=== PATIENT | male | born 1935 | race Caucasian/White ===

== ENCOUNTER 2016-11-07 21:12 | Inpatient (IN) | payer OTHER ==
--- NOTE | 2016-11-07 21:57 | EDPHY ---
H & P Time Seen by Provider: 11/07/16 21:23 HPI/ROS: CHIEF COMPLAINT: Syncope HISTORY OF PRESENT ILLNESS: Patient is a 80-year-old male who presents to the emergency department after having a syncopal episode. Patient has a history of syncope in the past for which a pacemaker was placed. Patient's states that his previous interrogation of the pacer did not reveal any dysrhythmia with syncopal episodes. Patient also reports abdominal aortic aneurysm of 4.4 cm. Patient [place] to visit his son. They had a beer. He took a hit of marijuana. He subsequently felt lightheaded. He went to his hands and knees. He then fainted. He denies any trauma in the fall. He has no headache or neck pain. He denies shortness of breath or chest pain. Patient denies abdominal pain, nausea or vomiting. He states "I feel 90%." REVIEW OF SYSTEMS: My complete review of systems is negative except as mentioned in the HPI. Past Medical/Surgical History: Includes abdominal aortic aneurysm, syncope, coronary artery disease Past surgical history: Includes bypass, pacemaker placement, orthopedic surgery Social history: The patient lives in [facility]. He does not smoke. He uses marijuana and year Smoking Status: Former smoker Physical Exam: Vitals noted GENERAL: Well-appearing, in no acute distress, alert. HEENT: Eyes normal to inspection, normal pharynx, no signs of dehydration. NECK: No thyromegaly, no lymphadenopathy, supple. RESPIRATORY: Clear to auscultation bilaterally, no rales, rhonchi or wheezing. CVS: Regular rate and rhythm, no rubs, murmurs, or gallops. Pacer in place. ABDOMEN: Soft, nontender, nondistended, no organomegaly. Midline ventral incisional hernia. Reducible. BACK: Normal to inspection, no CVA tenderness. SKIN: Normal color, no rash, warm, dry. No pallor. EXTREMITIES: No pedal edema, no calf tenderness, no Homans sign or cords, no joint swelling. NEURO/PSYCH: Higher functions: Alert and Oriented x3. Normal speech and cognition. Normal mood and affect. Cranial nerves: Normal as tested. Cerebellar: Normal as tested. Good finger to nose, good [id number], normal gait. Peripheral exam: Normal motor exam. Normal sensation. Normal reflexes. Constitutional: Initial Vital Signs Temperature (C) 36.3 C 11/07/16 21:21 Heart Rate 63 11/07/16 21:21 Respiratory Rate 16 11/07/16 21:21 Blood Pressure 142/79 H 11/07/16 21:21 O2 Sat (%) 95 11/07/16 21:21 O2 Delivery Mode Room Air Allergies/Adverse Reactions: No Known Allergies Allergy (Unverified 11/07/16 22:09) Home Medications: Medication Instructions Recorded ASPIRIN 11/07/16 Atenolol 11/07/16 Atorvastatin Calcium 11/07/16 Flomax 11/07/16 Lisinopril 11/07/16 Pepcid 11/07/16 Medical Decision Making - Diagnostics Imaging Results: Imaging Impressions Chest X-Ray 11/07/16 21:59 Impression: 1. Pacemaker without pneumothorax. 2. Previous coronary artery bypass. 3. Nonspecific 4 mm pulmonary nodule in the right midlung field. Recommend obtaining previous studies for comparison or follow-up CT chest. 4. Chronic bronchitis. 5. No definite pneumonia. Findings and recommendations discussed with Emergency Department physician, TRINO EPPERSON at 23:05 hour, 11/07/2016. Final report concurs with initial preliminary interpretation. ED Course/Re-evaluation: In the emergency department I discussed possible etiologies with the patient and his family. I answered all her questions. I reviewed the EMS EKG. Laboratory studies, EKG, chest x-ray, ultrasound were ordered. Patient was placed on a media monitor. Ventricular paced at 61 I rechecked the patient while here. He was stable during his stay. Chest x-ray: Patient has calcified nodules. Tortuous aorta. No focal infiltrate. I discussed the case with the hospitalist service. Dr. Sun will admit. Differential Diagnosis: My differential includes but is not limited to syncope, ACS, acute MA, dysrhythmia, dissection, aneurysm, electrolyte abnormality, sugar abnormality, vasovagal episode, reaction to marijuana, alcohol intoxication - Data Points Laboratory Results: Laboratory Results 11/07/16 21:27 11/07/16 21:27 11/07/16 11/07/16 11/07/16 21:27 21:27 21:27 WBC 8.80 10^3/uL 10^3/uL (3.80-9.50) RBC 4.63 10^6/uL 10^6/uL (4.40-6.38) Hgb 14.6 g/dL g/dL (13.7-17.5) Hct 44.6 % % (40.0-51.0) MCV 96.3 fL fL (81.5-99.8) MCH 31.5 pg pg (27.9-34.1) MCHC 32.7 g/dL g/dL (32.4-36.7) RDW 13.7 % % (11.5-15.2) Plt Count 181 10^3/uL 10^3/uL (150-400) MPV 10.4 fL fL (8.7-11.7) Neut % (Auto) 52.7 % % (39.3-74.2) Lymph % (Auto) 37.0 % % (15.0-45.0) Davis % (Auto) 6.1 % % (4.5-13.0) Eos % (Auto) 3.4 % % (0.6-7.6) Baso % (Auto) 0.7 % % (0.3-1.7) Nucleat RBC Rel Count 0.0 % % (0.0-0.2) Absolute Neuts (auto) 4.63 10^3/uL 10^3/uL (1.70-6.50) Absolute Lymphs (auto) 3.26 10^3/uL H 10^3/uL (1.00-3.00) Absolute Monos (auto) 0.54 10^3/uL 10^3/uL (0.30-0.80) Absolute Eos (auto) 0.30 10^3/uL 10^3/uL (0.03-0.40) Absolute Basos (auto) 0.06 10^3/uL 10^3/uL (0.02-0.10) Absolute Nucleated RBC 0.00 10^3/uL 10^3/uL (0-0.01) Immature Gran % 0.1 % % (0.0-1.1) Immature Gran # 0.01 10^3/uL 10^3/uL (0.00-0.10) PT 13.9 SEC SEC (12.0-15.0) INR 1.08 (0.83-1.16) APTT 23.6 SEC SEC (23.0-38.0) Sodium 137 mEq/L mEq/L (134-144) Potassium 4.5 mEq/L mEq/L (3.5-5.2) Chloride 105 mEq/L mEq/L (97-110) Carbon Dioxide 19 mEq/l L mEq/l (22-31) Anion Gap 13 mEq/L mEq/L (8-16) BUN 20 mg/dL mg/dL (7-23) Creatinine 1.3 mg/dL mg/dL (0.7-1.3) Estimated GFR 53 Glucose 127 mg/dL H mg/dL (70-100) Calcium 9.2 mg/dL mg/dL (8.5-10.4) Troponin I < 0.012 ng/mL ng/mL (0-0.034) Departure - Departure Disposition: [facility] Inpatient Acute Clinical Impression: Syncope and collapse Condition: Good
[2016-11-07] MEDS ORDERED: NS 500 ML IV ONE (21:59)
[2016-11-07 22:10] LABS: % IMMATURE GRANULYOCYTES 0.1 % (0.0-1.1); ABSOLUTE IMMATURE GRANULOCYTES 0.01 10^3/uL (0.00-0.10); ADD DIFF? NO; ADD MORPH? NO; ADD SCAN? NO; ATYPICAL LYMPHOCYTE FLAG 10 (0-99); FRAGMENT RBC FLAG 0 (0-99); HEMATOCRIT 44.6 % (40.0-51.0); HEMOGLOBIN 14.6 g/dL (13.7-17.5); LEFT SHIFT FLG 0 (0-99); LIPEMIA HEMOLYSIS FLAG 80 (0-99); MEAN CELL HEMOGLOBIN 31.5 pg (27.9-34.1); MEAN CELL HEMOGLOBIN CONCENTR. 32.7 g/dL (32.4-36.7); MEAN CELL VOLUME 96.3 fL (81.5-99.8); MEAN PLATELET VOLUME 10.4 fL (8.7-11.7); PLATELET CLUMPS FLAG 0 (0-99); PLATELET COUNT 181 10^3/uL (150-400); RED BLOOD CELL COUNT 4.63 10^6/uL (4.40-6.38); RED CELL DISTRIBUTION WIDTH 13.7 % (11.5-15.2)
[2016-11-07 22:11] LABS: APTT 23.6 SEC (23.0-38.0); INR 1.08 (0.83-1.16); PROTIME(PATIENT) 13.9 SEC (12.0-15.0)
--- NOTE | 2016-11-07 22:23 | CPEKG ---
Heart Rate: 61 RR Interval: 984 P-R Interval: 228 QRSD Interval: 140 QT Interval: 448 QTC Interval: 452 P [place]: 0 QRS [place]: 111 T Wave [place]: 254 EKG Severity - ABNORMAL ECG - EKG Impression: VENTRICULAR-PACED RHYTHM Electronically Signed By: Tomeka Lagunas 07-Nov-2016 22:57:50
[2016-11-07 22:51] LABS: ANION GAP 13 mEq/L (8-16); CALCIUM 9.2 mg/dL (8.5-10.4); CARBON DIOXIDE 19 mEq/l (22-31); CHLORIDE 105 mEq/L (97-110); CREATININE 1.3 mg/dL (0.7-1.3); GLOMERULAR FILTRATION RATE 53; GLUCOSE 127 mg/dL (70-100); POTASSIUM 4.5 mEq/L (3.5-5.2); SODIUM 137 mEq/L (134-144)
[2016-11-07 23:04] LABS: TROPONIN I < 0.012 ng/mL (0-0.034)
[2016-11-08] MEDS ORDERED: ONDANSETRON DISINTEGRATING 4 MG TAB PO PRN (00:19)
[2016-11-08] MEDS ORDERED: ACETAMINOPHEN 325 MG TAB PO PRN (00:19)
[2016-11-08] MEDS ORDERED: ALBUTEROL 3 ML DEYVIAL IH PRN (00:26)
--- NOTE | 2016-11-08 00:42 | PDGENHP ---
History and Physical - Chief Complaint syncope - History of Present Illness 80 yo male with h/o CAD, s/p CABG, PVD, AAA, and prior syncope with pacemaker placed in 1993 presents to ED after a syncopal event. He flew in from [place] today and noted feeling short of breath as soon as he landed. He says he used home oxygen when he lived in [place] previously, but isn't sure why, thinks maybe due to DUGLAS. He has no respiratory symptoms in [place], other than waking in the morning with phlegm. He is a prior smoker with 10-20 pack year history, but quit 35 yrs ago. He started using marijuana about a year ago to help him sleep. Upon arriving, he had a beer and then took a hit of marijuana. Shortly after smoking the MJ, he felt lightheaded and lowered himself to the ground. He then lost consciousness. He denies hitting his head. He denied feeling CP, SOB or palpitations prior to his syncope. He states that his pacemaker was placed in the 's after multiple episodes of syncope. An event monitor revealed what sounds like long sinus pauses and a pacemaker was placed. He has had a few syncopal episodes since then, though he notes those occurred usually after using marijuana. EMS was called and he was found to be hypotensive on scene. BP was normal upon arrival to the ED. He is completely asymptomatic at this time. He is admitted for observation. History Information - Allergies/Home Medication List Allergies/Adverse Reactions: No Known Allergies Allergy (Unverified 11/07/16 22:09) Home Medications: ASPIRIN 11/07/16 [Last Taken Unknown] Atenolol 11/07/16 [Last Taken Unknown] Atorvastatin Calcium 11/07/16 [Last Taken Unknown] Flomax 11/07/16 [Last Taken Unknown] Lisinopril 11/07/16 [Last Taken Unknown] Pepcid 11/07/16 [Last Taken Unknown] I have personally reviewed and updated: family history, medical history, social history, surgical history - Past Medical History coronary artery disease, hypertension, hyperlipidemia Additional medical history: PVD, osteoarthritis, h/o syncope, s/p pacemaker for sinus pauses - Surgical History Reports: coronary bypass surgery Additional surgical history: pacemaker placed 1993 - Family History Additional family history: mom of hodgkin's lymphoma, dad of PE, multiple siblings with CAD / DE - Social History Smoking Status: Former smoker Alcohol Use: Occasionally Drug Use: Marijuana Additional social history: Lives in [place], visiting family in [place]. Review of Systems ROS: 10pt was reviewed & negative except for what was stated in HPI & below Physical Exam Temp Pulse Resp BP Pulse Ox 36.8 C 74 22 H 150/83 H 92 11/07/16 23:57 11/07/16 23:57 11/07/16 23:57 11/07/16 23:57 11/07/16 23:57 Constitutional: no apparent distress Eyes: PERRL Ears, Nose, Mouth, Throat: moist mucous membranes Cardiovascular: regular rate and rhythym, no murmur, rub, or gallop Respiratory: no respiratory distress, clear to auscultation Gastrointestinal: normoactive bowel sounds, soft, non-tender abdomen Skin: warm Musculoskeletal: full muscle strength Neurologic: AAOx3 Psychiatric: interacting appropriately Lab Data & Imaging Review 11/07/16 21:27 11/07/16 21:27 WBC 8.80 10^3/uL (3.80-9.50) 11/07/16 21:27 RBC 4.63 10^6/uL (4.40-6.38) 11/07/16 21:27 Hgb 14.6 g/dL (13.7-17.5) 11/07/16 21:27 Hct 44.6 % (40.0-51.0) 11/07/16 21:27 MCV 96.3 fL (81.5-99.8) 11/07/16 21:27 MCH 31.5 pg (27.9-34.1) 11/07/16 21:27 MCHC 32.7 g/dL (32.4-36.7) 11/07/16 21:27 RDW 13.7 % (11.5-15.2) 11/07/16 21:27 Plt Count 181 10^3/uL (150-400) 11/07/16 21:27 MPV 10.4 fL (8.7-11.7) 11/07/16 21:27 Neut % (Auto) 52.7 % (39.3-74.2) 11/07/16 21:27 Lymph % (Auto) 37.0 % (15.0-45.0) 11/07/16: [place] % (Auto) 6.1 % (4.5-13.0) 11/07/16 21: Eos % (Auto) 3.4 % (0.6-7.6) 11/07/16 21: Baso % (Auto) 0.7 % (0.3-1.7) 11/07/16 21: Nucleat RBC Rel Count 0.0 % (0.0-0.2) 11/07/16 21: Absolute Neuts (auto) 4.63 10^3/uL (1.70-6.50) 11/07/16 21: Absolute Lymphs (auto) 3.26 10^3/uL (1.00-3.00) H 11/07/16: Absolute Monos (auto) 0.54 10^3/uL (0.30-0.80) 11/07/16 21: Absolute Eos (auto) 0.30 10^3/uL (0.03-0.40) 11/07/16 21: Absolute Basos (auto) 0.06 10^3/uL (0.02-0.10) 11/07/16 21: Absolute Nucleated RBC 0.00 10^3/uL (0-0.01) 11/07/16 21: Immature Gran % 0.1 % (0.0-1.1) 11/07/16 21: Immature Gran # 0.01 10^3/uL (0.00-0.10) 11/07/16 21: PT 13.9 SEC (12.0-15.0) 11/07/16 21: INR 1.08 (0.83-1.16) 11/07/16 21: APTT 23.6 SEC (23.0-38.0) 11/07/16 21: Sodium 137 mEq/L (134-144) 11/07/16 21: Potassium 4.5 mEq/L (3.5-5.2) 11/07/16 21: Chloride 105 mEq/L (97-110) 11/07/16 21: Carbon Dioxide 19 mEq/l (22-31) L 11/07/16 21: Anion Gap 13 mEq/L (8-16) 11/07/16 21:27 BUN 20 mg/dL (7-23) 11/07/16 21:27 Creatinine 1.3 mg/dL (0.7-1.3) 11/07/16 21: Estimated GFR 53 11/07/16 21:27 Glucose 127 mg/dL (70-100) H 11/07/16 21:27 Calcium 9.2 mg/dL (8.5-10.4) 11/07/16 21: Troponin I < 0.012 ng/mL (0-0.034) 11/07/16 21:27 Visualized and Interpreted Chest x-ray results: Yes Chest X-Ray results: no infiltrate Visualized and Interpreted EKG results: Yes EKG Interpretation: Positive for: normal sinsus rhythm Assessment & Plan Assessment: Syncope and collapse (Acute) - suspect neurally mediated after marijuana use, possibly orthostatic though orthostatics negative here. Also consider cardiogenic given his h/o sinus pauses and presence of pacemaker vs PE given recent travel and mild hypoxemia. -EACU, telemetry -trend troponin -interrogate pacemaker in am -check d dimer -I advised him against marijuana use Hypoxemia - mild, 92% on room air. CXR suggests chronic bronchitis. He has no pleuritic symptoms, no tachycardia. -as above, check d dimer, proceed with CTPA if elevated -prn nebs -recommended outpt PFT's Pulmonary nodule - 4 mm, incidental finding on CXR. Pt is informed of this and that he'll need outpt f/u chest CT when he returns to [place] (unless d dimer elevated here, in which case he'll have CTA prior to dc). AAA - U/S performed in ED, this is stable at ~4.4 cm. Outpt f/u for ongoing surveillance. CAD with h/o CABG - stable, no CP. Given syncope, will cycle troponin. Cont outpt meds. Full code Dispo - obs
[2016-11-08] MEDS ORDERED: IOPAMIDOL (ISOVUE 370) 100 ML BTL IV ONE (02:00)
[2016-11-08] MEDS ORDERED: FAMOTIDINE 20 MG TAB PO PRN (10:14)
[2016-11-08] MEDS ORDERED: METOPROLOL TARTRATE 25 MG TAB PO SCH (10:15)
[2016-11-08] MEDS: ACYCLOVIR 400 MG TAB PO SCH ×2 (10:27→20:19)
[2016-11-08] MEDS: ATENOLOL 50 MG TAB PO SCH ×2 (10:28→20:19)
[2016-11-08] MEDS: LISINOPRIL 20 MG TAB PO SCH ×2 (10:28→20:19)
[2016-11-08] MEDS: ASPIRIN 81 MG CHEWABLE TAB PO SCH (10:28)
[2016-11-08] MEDS: TAMSULOSIN HCL 0.4 MG CAP PO SCH (10:28)
[2016-11-08] MEDS ORDERED: hydrALAZINE 20 MG/ML VIAL IVP PRN (12:47)
--- NOTE | 2016-11-08 15:30 | HOSPPROG ---
Hospitalist Progress Note Assessment/Plan: 80 yo with syncopal episode. Patient new to me today -syncopy 2/2 use of ETOH with marijuana. This has previously caused syncopy. No evidence of rhythm disturbance; pacer is being interrogated currently -HTN: significant elevation. Will trreat with hydralazine and home meds and observe -CAD: no chest pain, troponin negative, ECG without ischemic changes -DUGLAS: uses CPAP while in [place], no in [place]. Will need nocturnal O2 Patient will need to be inpatient status due to hypertension, risk of coronary disease, and hypoxemia, and need monitor for 24 hours for dysrhtymia Subjective: no complaints, no chest pain Objective: Vital Signs Temp Pulse Resp BP Pulse Ox 36.6 C 60 18 126/68 H 93 11/08/16 12:00 11/08/16 12:00 11/08/16 12:00 11/08/16 14:40 11/08/16 12:00 PT 13.9 SEC (12.0-15.0) 11/07/16 21:27 INR 1.08 (0.83-1.16) 11/07/16 21:27 - Time Spent With Patient Time Spent with Patient: greater than 35 minutes Time Spent with Patient: Greater than 35 minutes spent on this patients care, greater than 50% of time spent counseling, educating, and coordinating care regarding the above mentioned plan. - Pending Discharge Pending Discharge Within 24 Hours: Yes Pending Discharge Date: 11/09/16 Pending Discharge Time: 11:00 - Physical Exam Constitutional: no apparent distress Eyes: PERRL, anicteric sclera Ears, Nose, Mouth, Throat: moist mucous membranes, hearing normal Cardiovascular: regular rate and rhythym, no murmur, rub, or gallop, systolic murmur, other (monitor is NSR with unifocal ectopy; no runs) Respiratory: no respiratory distress, no rales or rhonchi, clear to auscultation Gastrointestinal: normoactive bowel sounds, soft, non-tender abdomen Skin: warm Musculoskeletal: full muscle strength Neurologic: AAOx3, CN II-XII Intact ICD10 Worksheet Patient Problems: Problems Problem Status Onset Syncope and collapse Acute
--- NOTE | 2016-11-08 17:33 | ECHO ---
[id number] + + [address] : : [place] [address] : : [phone] + + Adult Echocardiographic Report + ---+ :Name: Laurel PORRAS Date: 11/08/2016 01:26 PM : : Hospital Admission Number: [id number] Location: 214: :: 1935 Gender: Male Height: 65 in : :Age: 80 yrs Race: WH Weight: 160 lb : :Reason For Study: Syncope : : BSA: 1.8 meters2 : :History: SOB/CABG/CAD/prior tobacco/DUGLAS : + ---+ MMode/2D Measurements \T\ Calculations IVSd: 1.4 cm LVIDd: 4.6 cm FS: 29.3 % Ao root diam: LVPWd: 1.0 cm LVIDs: 3.3 cm EDV(Teich): 3.7 cm 97.3 ml LA dimension: ESV(Teich): 4.7 cm 42.6 ml EF(Teich): 56.2 % LVLd ap4: 7.2 cm SV(MOD-sp4): EDV(MOD-sp4): 38.0 ml 60.0 ml LVLs ap4: 6.2 cm ESV(MOD-sp4): 22.0 ml EF(MOD-sp4): 63.3 % Normal Measurement Values: + + :LVIDd (3.5-5.7cm) IVSd (0.6-1.1cm) LVPWd (0.6-1.1cm) Aortic Root (2.0-3.7cm)Left Atrium (1.5-4.0cm): :LV Vol(d) (76-115ml) LV Vol(s) (29-48ml) Ejec Fraction (50-65%)PV Soham (0.6- 1.2m/s) TV Soham (0.4-1.0m/s) : :MV E Soham (0.8-1.0m/s)MV A Soham (0.3-1.0m/s)LVOT Soham (0.7-1.2m/s) Asc Ao Soham ( 0.9-1.8m/s) : + + Doppler Measurements \T\ Calculations MV E max soham: 95.3 cm/sec Ao V2 max: 120.8 cm/sec TR max soham: 319.0 cm/sec MV A max soham: 20.2 cm/sec Ao max P.8 mmHg TR max P.7 mmHg MV E/A: 4.7 RAP systole: 10.0 mmHg RVSP(TR): 50.7 mmHg Left Ventricle The left ventricle is normal in size. There is normal left ventricular wall thickness. Left ventricular systolic function is normal. Ejection Fraction = 65-70%. The left ventricular ejection fraction is calculated at 56.2 %. Septal motion is consistent with conduction abnormality. Right Ventricle The right ventricle is normal in size and function. There is a pacemaker lead in the right ventricle. Atria The left atrium is mildly dilated. The right atrium is mildly dilated. Mitral Valve The mitral valve is normal in structure and function. The mitral valve leaflets appear thickened, but open well. There is mild mitral regurgitation. Tricuspid Valve Normal tricuspid valve. There is moderate tricuspid regurgitation. Right ventricular systolic pressure is 45-50mmHg. There is Doppler evidence for mild pulmonary hypertension. Aortic Valve The aortic valve is trileaflet. The aortic valve opens well. There is no aortic stenosis. Trace aortic regurgitation. Pulmonic Valve The pulmonic valve is not well visualized. Trace pulmonic valvular regurgitation. Great Vessels The aortic root is normal size. Pericardium/Pleural There is no pericardial effusion. Conclusion A complete two-dimensional transthoracic echocardiogram was performed (2D, M-mode, Doppler and color flow Doppler). (1) Left ventricular systolic ejection fraction was normal (65-70%) - septal wall motion consisent with conduction (2) No left ventricular hypertrophy (3) Diastolic dysfunction was present (4) Normal right ventricular systolic ejection fraction (5) Mild biatrial dilation (6) Mild mitral regurgitation (7) Trileaflet aortic valve without sclerosis or appreciable insufficiency (8) Moderate tricuspid regurgitation - RVSP was estimated to be 45-50 mm Hg (9) Physiologic pulmonic insufficiency (10) Pacer lead to the right ventricular chamber (11) No comparison echocardiogram Final Reading Physician: Saman Ayala signed on 11/08/2016 05:31 PM Ordering Physician: Chavo Dawson Performed By: Alberta Colbert, CS
[2016-11-08] MEDS ORDERED: ATORVASTATIN CALCIUM 40 MG TAB PO SCH (21:00)
[2016-11-08] MEDS ORDERED: traZODone 50 MG TAB PO PRN (21:21)
[2016-11-09 07:09] VITALS: BP 153/88
[2016-11-09 08:07] VITALS: PULSE 60; RESP 17; TEMP 97.7; O2SAT 94
[2016-11-09] MEDS: ASPIRIN 81 MG CHEWABLE TAB PO SCH (08:46)
[2016-11-09] MEDS: ATENOLOL 50 MG TAB PO SCH (08:46)
[2016-11-09] MEDS: LISINOPRIL 20 MG TAB PO SCH (08:46)
[2016-11-09] MEDS: TAMSULOSIN HCL 0.4 MG CAP PO SCH (08:46)
[2016-11-09] MEDS: ACYCLOVIR 400 MG TAB PO SCH (08:46)
--- NOTE | 2016-11-09 10:42 | GDS ---
[f rep st] DISCHARGE SUMMARY ADMISSION DIAGNOSES: New and acute diagnoses on this admission: 1. Acute syncope, probably vasovagal. 2. Hypertension. 3. Elevated D-dimer. 4. Obstructive sleep apnea syndrome. 5. Pulmonary nodule, 4 millimeters, incidental finding on chest x-ray, requested outpatient followup on CT scan in 3 to 6 months. CONSULTATIONS: None. PROCEDURES: Echocardiogram, showing an EF of 65% to 70%, diastolic dysfunction , mild mitral regurgitation, trileaflet aortic valve without sclerosis or any appreciable insufficiency, and the RVSP was elevated at 45 to 50 mmHg. HOSPITAL COURSE: A 80-year-old male admitted for a syncopal episode. He reported approximately 3 episodes of syncope following ingestion of a beer and using marijuana. He presented to the emergency department because of the syncope, alert and oriented, and with hypertension. Because of an elevated D- dimer a CTA of the chest was performed, showing no evidence of a pulmonary embolus. He had diffuse peribronchial thickening, which could be related to bronchitis. The aorta was of normal caliber with moderate atherosclerosis. There is a benign right lung granuloma, accounting for the nodule seen on the plain x-ray. He persisted with hypertension of a mild degree, which was treated in usual fashion by starting his usual antihypertensive medications. Despite this he continued to have blood pressures over 140, approximately 153/ 88. He had no chest pain. Troponin series was negative. CBC was normal. Chemistry panel was normal, with normal renal function. As the gentleman was asymptomatic, and it appeared he had a vasovagal episode secondary to ingesting both marijuana and alcohol, this is an incident which has occurred previously to him when he has ingested alcohol and smoked marijuana. He also noted some shortness of breath, but came to higher altitude as he lives in the [place] area. His oxygen saturation on room air was 92% to 94%. As a result of his persistent mild hypertension I will add Norvasc 2.5 mg per day. His blood pressure will then be followed up by his PCP in [place]. MEDICATIONS: New medication is Norvasc 2.5 mg a day, and his continued medications will be famotidine 20 mg per day, Flomax 0.4 mg a day, Lipitor 40 mg a day, Atenolol 50 mg b.i.d., ASA 81 mg a day, Acyclovir 400 mg b.i.d., and lisinopril 20 mg b.i.d. PLAN: He will be discharged to his own care. He is traveling here in [place]. He will be returning to the [place] area within approximately 5 days, followup is suggested in 1-2 weeks at [facility], and he is to check his blood pressure, record the readings and take these to his physician. FOLLOW UP: Physician is at [facility] in [place]. Time: 40 minutes > 50% to counselor nurses' association and coordinate care, review medications, and review the need for the additional blood pressure medication. /[id number]/MODL MTDD
== END 2016-11-09 11:38 | DRG 312 ==
LOC: F1N 23:35 → F2W 11-08 09:10 → OBSVTOIN 11-08 17:20
PROVIDERS: ADMIT Hospitalist; ATTEND Internal Medicine Pulmonary Disease
DX: R55 Syncope and collapse (principal); I10 Essential (primary) hypertension; R09.02 Hypoxemia; I25.10 Atherosclerotic heart disease of native coronary artery without angina pectoris; R91.1 Solitary pulmonary nodule; I71.4 Abdominal aortic aneurysm, without rupture; J42 Unspecified chronic bronchitis; G47.33 Obstructive sleep apnea (adult) (pediatric); Z95.1 Presence of aortocoronary bypass graft; Z95.0 Presence of cardiac pacemaker; Z87.891 Personal history of nicotine dependence
CPT/HCPCS: J0360; Q9967